=== PATIENT | female | born 1965 | race African-American/Black ===

== ENCOUNTER 2022-05-13 20:30 | Emergency (ER) | payer OTHER ==
[~2022-05-13] VITALS: Ht 162.6 cm; Wt 95.3 kg
[2022-05-13] MEDS ORDERED: METHYLPREDNISOLONE SOD SUCC 125 MG/2 ML VIAL IV STA (21:44)
[2022-05-13] MEDS ORDERED: IPRATROPIUM BROMIDE (0.02%) 0.5MG/2.5ML NEB HHN STA (21:44)
[2022-05-13] MEDS: ALBUTEROL (0.083%) 2.5MG/3ML NEB HHN SCH (22:31)
[2022-05-13 22:37] LABS: BASOPHILS % 1.4 % (0.0-2.0); EOSINOPHILS % 4.8 % (0.0-5.0); HEMATOCRIT. 35.8 % (36.0-48.0); HEMOGLOBIN. 11.9 g/dL (12.0-16.0); LYMPHOCYTES % 29.4 % (20.0-50.0); MEAN CORPUSCULAR HEMOGLOBIN 28.6 pg (28.0-32.0); MEAN CORPUSCULAR VOLUME 86.1 fL (81.0-99.0); MEAN PLATELET VOLUME 9.2 fl (7.4-10.4); MONOCYTES % 7.9 % (2.0-8.0); NEUTROPHILS % 56.5 % (40.0-76.0); PLATELET 272 x1000/uL (130-400); RED BLOOD CELL COUNT 4.16 mill/uL (4.2-5.4); RED CELL DISTRIBUTION WIDTH 14.2 % (11.6-14.6)
[2022-05-13 22:39] LABS: CHLORIDE 111 mEq/L (98-107)
[2022-05-14] MEDS ORDERED: ALBU6.7H15 INH (00:54)
[2022-05-14] MEDS ORDERED: P50 MT (00:54)
[2022-05-14 01:30] VITALS: BP 140/74
== END 2022-05-14 01:30 | disposition home or self-care (01) ==
LOC: ER 20:30
DX: J45.901 Unspecified asthma with (acute) exacerbation (principal); I11.0 Hypertensive heart disease with heart failure; I50.9 Heart failure, unspecified
CPT/HCPCS: 36415; 71045; 76604; 80053; 83880; 84484; 85025; 87426; 87804; 93005; 93880; 94640; 96374; 99285; C9803; J2930; Z7610